=== PATIENT | female | born 1980 | race African-American/Black ===

== ENCOUNTER 2018-01-06 18:45 | Observation (INO) | payer OTHER | END 2018-01-06 20:35 | disposition home or self-care (01) | LOC: SPU 18:45 | PROVIDERS: ADMIT Obstetrics & Gynecology; ATTEND Obstetrics & Gynecology | DX: O46.93 Antepartum hemorrhage, unspecified, third trimester (principal); O48.0 Post-term pregnancy; Z3A.40 40 weeks gestation of pregnancy | CPT/HCPCS: 81002; G0378 ==

== ENCOUNTER 2018-01-08 09:31 | Inpatient (IN) | payer OTHER ==
[~2018-01-08] VITALS: Ht 160 cm; Wt 79.8 kg
[2018-01-08] MEDS ORDERED: OXYTOCIN/0.9 % SODIUM CHLORIDE 1,000 ML IV SCH (10:07)
[2018-01-08] MEDS ORDERED: LR 1,000 ML IV SCH (10:07)
[2018-01-08] MEDS ORDERED: LR 1,000 ML IV ONE (10:07)
[2018-01-08] MEDS ORDERED: TERBUTALINE SULFATE 1 MG/ML VIAL SUBCUT ONE (10:15)
[2018-01-08] MEDS ORDERED: NALBUPHINE HCL 10 MG/ML AMP IVP PRN (10:15)
[2018-01-08] MEDS ORDERED: AMPICILLIN SODIUM 2 GM VIAL ONE (10:16)
[2018-01-08 10:46] VITALS: BP_SYST 127
[2018-01-08 10:53] LABS: HEMATOCRIT 36.5 % (36-48); HEMOGLOBIN 12.5 g/dL (12.0-16.0); MEAN CORPUSCULAR HEMOGLOBIN 32 pg (27-31); MEAN CORPUSCULAR HGB CONC 34 % (32-36); MEAN CORPUSCULAR VOLUME 93 fL (79.0-98.0); PLATELET COUNT (AUTO) 124 K/uL (130-430); RED BLOOD CELL COUNT(AUTO) 3.92 MIL/uL (4.2-6.2); RED CELL DISTRIBUTION WIDTH 15.4 % (9.0-15.0); WHITE BLOOD COUNT (AUTO) 13.8 K/uL (4.8-10.8)
[2018-01-08] MEDS: AMPICILLIN SODIUM 2 GM in NS 100 ML IV ONE ×2 (10:54→10:57)
[2018-01-08] MEDS ORDERED: fentaNYL CITRATE/PF 100 MCG/2 ML AMP ONE ×2 (11:13→11:14)
[2018-01-08] MEDS ORDERED: ROPIVACAINE 0.2% 100 ML ONE ×2 (11:13→19:19)
[2018-01-08 11:14] LABS: BAND % (MANUAL) 4 % (0-6)
[2018-01-08 11:15] LABS: BASOPHILS % (MANUAL) 0 % (0-2); EOSINOPHILS % (MANUAL) 0 % (0-7); LYMPHOCYTES % (MANUAL) 13 % (20-46); MONOCYTES % (MANUAL) 8 % (0-11)
[2018-01-08] MEDS ORDERED: LR 500 ML IV ONE (11:41)
[2018-01-08] MEDS ORDERED: FENT2mCg/mL-ROPIVA0.2%/NS EPID 150 ML EP SCH (11:45)
[2018-01-08] MEDS ORDERED: ePHEDrine sulfate 50 MG/ML VIAL IVP PRN (11:45)
[2018-01-08] MEDS ORDERED: fentaNYL CITRATE/PF 100 MCG/2 ML AMP EP ONE (11:45)
[2018-01-08] MEDS: AMPICILLIN SODIUM 1 GM in NS 50 ML IV SCH ×3 (14:38→23:00)
[2018-01-09] MEDS: AMPICILLIN SODIUM 1 GM in NS 50 ML IV SCH (03:00)
[2018-01-09] MEDS ORDERED: ROPIVACAINE 0.2% 100 ML ONE (03:18)
[2018-01-09] MEDS ORDERED: METHYLERGONOVINE MALEATE 0.2 MG/ML AMP ONE (05:59)
[2018-01-09] MEDS ORDERED: OXYTOCIN/0.9 % SODIUM CHLORIDE 1,000 ML IV SCH (06:05)
[2018-01-09] MEDS ORDERED: OXYTOCIN/0.9 % SODIUM CHLORIDE 1,000 ML IV ONE (06:05)
[2018-01-09] MEDS ORDERED: ACETAMINOPHEN 325 MG TABLET PO PRN (06:15)
[2018-01-09] MEDS ORDERED: SENNOSIDES/DOCUSATE SODIUM 1 TAB TABLET(SENOKOT-S) PO PRN (06:15)
[2018-01-09] MEDS ORDERED: HYDROCORTISONE 0.5%, 28.35 GM TOPICAL CREAM TP PRN (06:15)
[2018-01-09] MEDS ORDERED: METHYLERGONOVINE MALEATE 0.2 MG TABLET PO PRN (06:15)
[2018-01-09] MEDS ORDERED: RHO(D) IMMUNE GLOBULIN/MALTOSE 1500 UNITS/1.3 ML (WINHRO) IM PRN (06:15)
[2018-01-09] MEDS ORDERED: ANUSOL 1 EA SUPP.RECT (PREPARATION H) RC PRN (06:15)
[2018-01-09] MEDS ORDERED: TEMAZEPAM 15 MG CAPSULE PO PRN (06:15)
[2018-01-09] MEDS ORDERED: MEASLES,MUMPS&RUBELLA VACC/PF 12500 UNIT/0.5 ML VIAL SUBQ PRN (06:15)
[2018-01-09] MEDS ORDERED: LANOLIN 7 GM OINT. TP PRN (06:15)
[2018-01-09] MEDS ORDERED: DERMOPLAST SPRAY TP PRN (06:15)
[2018-01-09] MEDS ORDERED: WITCH HAZEL LEAF 1 MED.PAD MED.PAD TP PRN (06:15)
[2018-01-09] MEDS ORDERED: ROPIVACAINE 40 MG/20 ML AMP EP ONE (06:52)
[2018-01-09] MEDS ORDERED: BUPIVACAINE /PF 0.25% 30 ML VIAL INJ ONE (06:53)
[2018-01-09] MEDS: HYDROcodone/ACETAMIN 5-325 MG TAB (NORCO/ VICODIN) PO PRN ×2 (08:08→12:47)
[2018-01-09] MEDS: IBUPROFEN 600 MG TABLET PO SCH ×2 (12:46→19:13)
[2018-01-10] MEDS: IBUPROFEN 600 MG TABLET PO SCH ×4 (00:24→17:43)
[2018-01-10] MEDS: HYDROcodone/ACETAMIN 5-325 MG TAB (NORCO/ VICODIN) PO PRN ×3 (00:25→23:08)
[2018-01-10] MEDS ORDERED: HYDROcodone/ACETAMIN 5-325 MG TAB (NORCO/ VICODIN) ONE (00:26)
[2018-01-10 07:34] LABS: HEMOGLOBIN 7.4 g/dL (12.0-16.0)
[2018-01-10] MEDS ORDERED: FERROUS SULFATE 325 MG TABLET.DR PO ONE (09:30)
[2018-01-10] MEDS: DOCUSATE SODIUM 100 MG CAPSULE PO PRN ×2 (12:22→23:09)
[2018-01-10] MEDS: FERROUS SULFATE 325 MG TABLET.DR PO SCH ×2 (17:43→21:36)
[2018-01-11] MEDS: IBUPROFEN 600 MG TABLET PO SCH (06:00)
== END 2018-01-11 13:49 | disposition home or self-care (01) | DRG 775 ==
LOC: OBSVTOIN 09:31 → SPU 09:31
PROVIDERS: ADMIT Obstetrics & Gynecology; ATTEND Obstetrics & Gynecology
PROC: 10D07Z6 Extraction of Products of Conception, Vacuum, Via Natural or Artificial Opening (ICD-10-PCS; principal; 2018-01-08)
PROC: 0W8NXZZ Division of Female Perineum, External Approach (ICD-10-PCS; 2018-01-08)
PROC: 3E0R3BZ Introduction of Anesthetic Agent into Spinal Canal, Percutaneous Approach (ICD-10-PCS; 2018-01-08)
PROC: 00HU33Z Insertion of Infusion Device into Spinal Canal, Percutaneous Approach (ICD-10-PCS; 2018-01-08)
DX: O63.9 Long labor, unspecified (principal); Z53.29 Procedure and treatment not carried out because of patient's decision for other reasons; O99.824 Streptococcus B carrier state complicating childbirth; Z3A.40 40 weeks gestation of pregnancy; Z37.0 Single live birth; O99.03 Anemia complicating the puerperium; D64.9 Anemia, unspecified
CPT/HCPCS: 36415; 81002-TC; 85007; 85018-TC; 85027; 86592; 86886; 86900; 86901; 94760; J0290; J2210; J2590; J2795; J3010; J3490; J7120